=== PATIENT | female | born 1945 | race Caucasian/White ===

== ENCOUNTER → 2025-05-30 11:40 | Outpatient (CLI) | payer MEDICARE, SELFPAY ==
[2025-05-30 12:57] LABS: INR 2.3 (0.9-1.3); Prothrombin Time 25.5 SECONDS (9.4-12.5)
== END ==
DX: C44.321 Squamous cell carcinoma of skin of nose (principal); D68.61 Antiphospholipid syndrome; I82.402 Acute embolism and thrombosis of unspecified deep veins of left lower extremity; Z79.01 Long term (current) use of anticoagulants; Z86.711 Personal history of pulmonary embolism; Z86.718 Personal history of other venous thrombosis and embolism
CPT/HCPCS: 36415; 85610